=== PATIENT | female | born 1940 | race Caucasian/White ===

== ENCOUNTER → 2018-05-30 | Outpatient (CLI) | payer MEDICARE, BC ==
[2017-04-10 11:00] VITALS: BP 207/86
[~2018-05-30] MED LIST: AMLO10TA2 PO; ARIP5TAB13 PO; ASPI81TA59 PO; CARB1TAB4 PO; CARV25TA2 PO; CHOL200074 PO; CRAN200C2 PO; CYAN10005 PO; DONE5TAB7 PO; FOSI40TA3 PO; INSU100C4 SQ; INSU100I13 SQ; KRIL500C PO; LAMO150T2 PO; LEVO75TA PO; MAGN400C PO; METF10003 PO; MULT-697 PO; PRAV80TA2 PO; ROPI0.5T PO
--- NOTE | 2018-05-30 16:48 | KCIC ---
MRI of the lumbar spine without contrast 05/30/2018 CLINICAL HISTORY: Low back pain which radiates down both hips, right greater than left. TECHNIQUE: Unenhanced T1-weighted and T2-weighted sagittal and axial and inversion recovery sagittal images of the lumbar spine were obtained. FINDINGS: Minimal S-shaped curvature of the thoracolumbar spine is seen. Mild anterolisthesis of L3 in relation to L4 and L4 in relation to L5 is noted. Degenerative signal changes are seen involving all of the disks of the lumbar spine. Degenerative signal changes are seen within the marrow surrounding these discs. A 1.3 cm perineural cyst is seen within the sacral spinal canal at the S2 level. The conus medullaris is normal morphology, position, and signal characteristics. Multiple hemangiomas are seen throughout the lower thoracic and lumbar sacral vertebral bodies. These measure 3 mm to 2.9 cm in size. The changes of degenerative disc disease are seen throughout the lumbar disc spaces. These consist of mild to moderate generalized disc bulges and degenerative changes involving the facet joints. Mild to moderate ligamentum flavum hypertrophy is seen . These findings result in mild to moderate central spinal canal stenosis at L1-2 and L2-3 with moderate to severe central spinal canal stenosis at L3-4 mild bilateral neural foraminal stenosis is seen at L3-4. IMPRESSION: The changes of degenerative disc disease are seen involving the lumbar spine. These findings result in mild to moderate central spinal canal stenosis at L1-2 and L2-3 and moderate to severe central spinal canal stenosis at L3-4. Mild bilateral neural foraminal stenosis is seen at L3-4. Electronically signed by: Eduardo Lewis MD (05/30/2018 4:45 PM) [id number]
== END | disposition home or self-care (01) ==
LOC: KCIC MRI 10:00
PROVIDERS: ATTEND Anesthesiology Pain Medicine
DX: M51.16 Intervertebral disc disorders with radiculopathy, lumbar region (principal); M48.061 Spinal stenosis, lumbar region without neurogenic claudication; I10 Essential (primary) hypertension; E11.9 Type 2 diabetes mellitus without complications; E78.5 Hyperlipidemia, unspecified; Z88.8 Allergy status to other drugs, medicaments and biological substances
CPT/HCPCS: 72148

== ENCOUNTER → 2018-08-03 | Outpatient (CLI) | payer MEDICARE, BC ==
[2017-04-10 11:00] VITALS: BP 207/86
[~2018-08-03] MED LIST changes: -AMLO10TA2 PO; +AMLO10TA6 PO; +GADOBUTROL 10 MMOL/10 ML VIAL IV ONE; -METF10003 PO; +METF10007 PO
--- NOTE | 2018-08-03 14:41 | KCIC ---
MRI abdomen with and without contrast dated 08/03/2018. Comparison made to ultrasound dated 07/29/2018. CLINICAL INDICATION: Follow-up abnormal ultrasound. Right upper quadrant pain. The pancreatic cyst. TECHNIQUE: Routine multiplanar multisequence MR imaging of abdomen performed with and without the administration of 8 cc Gadavist. Sequences performed to include single shot fast spin echo imaging the axial and coronal plane along with thin and out of phase gradient images. Pre and postcontrast gadolinium-enhanced dynamic imaging performed with and without contrast. FINDINGS: Well-circumscribed T2 hyperintense lesion at the pancreatic neck measures up to 2.5 cm in size and shows no appreciable enhancement post gadolinium. There is some heterogeneous debris and/or septations within the lesion. The lesion abuts but does not clearly communicate with the pancreatic duct. The pancreatic duct does not appear dilated. No inflammatory changes surrounding the gland. No evidence of pancreatic divisum. Liver is homogeneous. No apparent hepatic mass or abnormal enhancement. Biliary tree is normal in caliber. No filling defect at the CBD. The gallbladder is surgically absent. No significant signal dropout in the liver on the out of phase images. There is nodular fullness of the bilateral adrenal glands which shows hypointense signal on the out of phase images, consistent with adrenal adenomas. These measure about 2.2 cm on the right and 2.3 cm on the left. Spleen is unremarkable. There is a T1 hyperintense nodule within the midpole right kidney that measures 1.1 cm, without appreciable enhancement tiny T2 hyperintense nonenhancing focus at the posterior midpole left kidney. Kidneys are otherwise symmetric. No hydronephrosis. IMPRESSION: 1. Complex cystic mass at the pancreatic neck shows no appreciable enhancement post gadolinium. Although this could represent a benign cystic lesion, cystic pancreatic neoplasm cannot be excluded. Follow-up imaging in 6 months to one year to ensure stability. 2. Hyperintense T1 nodule at the midpole right kidney shows no appreciable enhancement post gadolinium and likely represents a hemorrhagic or proteinaceous cyst. This could also be followed on subsequent exams. 3. Bilateral adrenal adenomas. 4. Status post cholecystectomy. Electronically signed by: Jose Alejandro Flowers MD (08/03/2018 2:38 PM) [id number]
== END | disposition home or self-care (01) ==
LOC: KCIC MRI 12:32
PROVIDERS: ATTEND Family Medicine
DX: K86.2 Cyst of pancreas (principal); D35.02 Benign neoplasm of left adrenal gland; D35.01 Benign neoplasm of right adrenal gland; Z90.49 Acquired absence of other specified parts of digestive tract
CPT/HCPCS: 74183